=== PATIENT | male | born 1970 | race Caucasian/White ===

== ENCOUNTER 2017-11-17 16:58 | Emergency (ER) | payer OTHER ==
[2017-11-17] MEDS ORDERED: Aspirin 81 MG Tab.Chew PO ONE (17:05)
[2017-11-17] MEDS ORDERED: Ondansetron 4 MG/2 ML SDV ONE (17:08)
[2017-11-17] MEDS ORDERED: Ondansetron 4 MG/2 ML SDV IVPUSH ONE ×2 (17:08→19:30)
[2017-11-17] MEDS ORDERED: Aspirin 81 MG Tab.Chew ONE (17:10)
--- NOTE | 2017-11-17 17:23 | EDM.PDOC ---
ED HPI GENERAL MEDICAL PROBLEM - General Chief Complaint: Cardiovascular Problem Stated Complaint: [facility] Time Seen by Provider: 11/17/17 17:05 Source of Information: Reports: Patient History Limitations: Reports: No Limitations - History of Present Illness INITIAL COMMENTS - FREE TEXT/NARRATIVE: 47-year-old male presenting with a chief complaint dizziness, nausea, diaphoresis and chest pressure. While at work today the patient suddenly became diaphoretic nauseous and dizzy with some chest pressure which was substernal and left-sided. This is the second episode the patient has had in the past week and episode today was more severe than the first. Patient has history of hypertension for which she is on lisinopril. Patient can't describe any palliative or provoking factors. Upon arrival to our emergency department his chest pressure did resolve. Patient denies any history of CAD/ACS. States that he has no early family cardiac history. Patient is nonsmoker. - Related Data Allergies Allergy/AdvReac Type Severity Reaction Status Date / Time No Known Allergies Allergy Verified 11/17/17 17:04 Home Meds: Home Meds Lisinopril 20 mg PO DAILY 11/17/17 [History] hydroCHLOROthiazide [Hydrochlorothiazide] 25 mg PO DAILY 11/17/17 [History] Social & Family History - Tobacco Use Smoking Status *Q: Never Smoker - Caffeine Use Caffeine Use: Reports: Soda - Recreational Drug Use Recreational Drug Use: No ED ROS GENERAL - Review of Systems Review Of Systems: See Below Constitutional: Reports: Diaphoresis Respiratory: Reports: No Symptoms Cardiovascular: Reports: Other (Chest pressure) GI/Abdominal: Reports: Nausea : Reports: No Symptoms Musculoskeletal: Reports: No Symptoms Skin: Reports: No Symptoms Neurological: Reports: Dizziness Psychiatric: Reports: No Symptoms ED EXAM, GENERAL - Physical Exam Exam: See Below Exam Limited By: No Limitations General Appearance: Alert, Moderate Distress Eye Exam: Bilateral Eye: EOMI Respiratory/Chest: No Respiratory Distress, Lungs Clear, Normal Breath Sounds, Chest Non-Tender Cardiovascular: Normal Peripheral Pulses, Regular Rate, Rhythm, No Edema, No Gallop, No Murmur GI/Abdominal: Normal Bowel Sounds, Soft, Non-Tender, No Distention Neurological: Alert, Oriented, CN II-XII Intact, No Motor/Sensory Deficits Psychiatric: Normal Affect, Normal Mood Skin Exam: Intact, Cool, Diaphoretic EKG INTERPRETATION EKG Date: 11/17/17 Time: 17:01 Rhythm: NSR Rate (Beats/Min): 65 Orient: Normal P-Wave: Present QRS: Normal ST-T: Normal QT: Normal MI/PQ Interval: 182 Comparison: NA - No Prior EKG EKG Interpretation Comments: EKG limited by artifact missing V2. There are noted inverted T waves in V3 V4 V5 and V6. No ST segment changes no other acute signs of ischemia Course - Vital Signs Last Recorded V/S: Last Vital Signs Temp 36.6 C 11/17/17 17:04 Pulse 64 11/17/17 17:04 Resp 21 H 11/17/17 17:04 BP 139/84 11/17/17 17:04 Pulse Ox 96 11/17/17 17:04 Orthostatic Blood Pressure [ 142/86 Standing] Orthostatic Blood Pressure [ 146/87 Sitting] Orthostatic Blood Pressure [ 143/82 Supine] - Orders/Labs/Meds Orders: Active Orders 24 hr Category Date Time Status Cardiac Monitoring [RC] . DIRECTED Care 11/17/17 17:05 Active EKG Documentation Completion [RC] ASDIRECTED Care 11/17/17 19:55 Active EKG Documentation Completion [RC] STAT Care 11/17/17 19:29 Active EKG Documentation Completion [RC] STAT Care 11/17/17 21:34 Active Orthostatic Vital Signs [RC] ASDIRECTED Care 11/17/17 17:05 Active Pulse Oximetry [RC] CONTINUOUS Care 11/17/17 17:06 Active Nothing per Oral Now Diet [DIET] Diet 11/17/17 Dinner Active Chest 1V Frontal [CR] Stat Exams 11/17/17 17:07 Taken EKG 12 Lead [EK] Stat Ther 11/17/17 19:55 Ordered Labs: Laboratory Tests 11/17/17 11/17/17 11/17/17 Range/Units 17:05 17:05 17:05 WBC 9.42 H (4.23-9.07) K/mm3 RBC 5.45 (4.63-6.08) M/mm3 Hgb 17.2 (13.7-17.5) gm/L Hct 48.3 (40.1-51.0) % MCV 88.6 (79.0-92.2) fl MCH 31.6 (25.7-32.2) pg MCHC 35.6 H (32.2-35.5) g/dl RDW Std Deviation 41.8 (35.1-43.9) fL Plt Count 229 (163-337) K/mm3 MPV 10.4 (9.4-12.3) fl Neut % (Auto) 49.3 (34.0-67.9) % Lymph % (Auto) 36.8 (21.8-53.1) % [place] % (Auto) 10.7 (5.3-12.2) % Eos % (Auto) 2.2 (0.8-7.0) Baso % (Auto) 0.6 (0.1-1.2) % Neut # (Auto) 4.63 (1.78-5.38) K/mm3 Lymph # (Auto) 3.47 (1.32-3.57) K/mm3 [place] # (Auto) 1.01 H (0.30-0.82) K/mm3 Eos # (Auto) 0.21 (0.04-0.54) K/mm3 Baso # (Auto) 0.06 (0.01-0.08) K/mm3 PT 11.3 (9.5-12.1) SECONDS INR 1.04 Sodium 137 (136-145) mEq/L Potassium 3.4 L (3.5-5.1) mEq/L Chloride 98 (98-107) mEq/L Carbon Dioxide 24 (21-32) mEq/L Anion Gap 18.4 H (5-15) BUN 20 H (7-18) mg/dL Creatinine 1.4 H (0.7-1.3) mg/dL Est Cr Clr Drug Dosing 76.28 mL/min Estimated GFR (MDRD) 54 (>60) mL/min BUN/Creatinine Ratio 14.3 (14-18) Glucose 138 H (74-106) mg/dL Calcium 9.1 (8.5-10.1) mg/dL Magnesium 1.9 (1.8-2.4) mg/dl Total Bilirubin 0.6 (0.2-1.0) mg/dL AST 43 H (15-37) U/L ALT 80 H (16-63) U/L Alkaline Phosphatase 61 (46-116) U/L CK-MB (CK-2) 0.5 (0-3.6) ng/ml Troponin I < 0.017 (0.00-0.056) ng/mL NT-Pro-B Natriuret Pep (0-125) pg/mL Total Protein 8.0 (6.4-8.2) g/dl Albumin 4.1 (3.4-5.0) g/dl Globulin 3.9 gm/dL Albumin/Globulin Ratio 1.1 (1-2) Lipase 258 (73-393) U/L 11/17/17 11/17/17 Range/Units 17:05 20:05 WBC (4.23-9.07) K/mm3 RBC (4.63-6.08) M/mm3 Hgb (13.7-17.5) gm/L Hct (40.1-51.0) % MCV (79.0-92.2) fl MCH (25.7-32.2) pg MCHC (32.2-35.5) g/dl RDW Std Deviation (35.1-43.9) fL Plt Count (163-337) K/mm3 MPV (9.4-12.3) fl Neut % (Auto) (34.0-67.9) % Lymph % (Auto) (21.8-53.1) % [place] % (Auto) (5.3-12.2) % Eos % (Auto) (0.8-7.0) Baso % (Auto) (0.1-1.2) % Neut # (Auto) (1.78-5.38) K/mm3 Lymph # (Auto) (1.32-3.57) K/mm3 [place] # (Auto) (0.30-0.82) K/mm3 Eos # (Auto) (0.04-0.54) K/mm3 Baso # (Auto) (0.01-0.08) K/mm3 PT (9.5-12.1) SECONDS INR Sodium (136-145) mEq/L Potassium (3.5-5.1) mEq/L Chloride (98-107) mEq/L Carbon Dioxide (21-32) mEq/L Anion Gap (5-15) BUN (7-18) mg/dL Creatinine (0.7-1.3) mg/dL Est Cr Clr Drug Dosing mL/min Estimated GFR (MDRD) (>60) mL/min BUN/Creatinine Ratio (14-18) Glucose (74-106) mg/dL Calcium (8.5-10.1) mg/dL Magnesium (1.8-2.4) mg/dl Total Bilirubin (0.2-1.0) mg/dL AST (15-37) U/L ALT (16-63) U/L Alkaline Phosphatase (46-116) U/L CK-MB (CK-2) (0-3.6) ng/ml Troponin I < 0.017 (0.00-0.056) ng/mL NT-Pro-B Natriuret Pep 5 (0-125) pg/mL Total Protein (6.4-8.2) g/dl Albumin (3.4-5.0) g/dl Globulin gm/dL Albumin/Globulin Ratio (1-2) Lipase (73-393) U/L Meds: Medications Discontinued Medications Generic Name Dose Route Start Last Admin Trade Name Freq PRN Reason Stop Dose Admin Aspirin 324 mg 11/17/17 17:05 11/17/17 17:10 Aspirin PO 11/17/17 17:06 324 mg ONETIME ONE Administration Aspirin Confirm 11/17/17 17:10 11/17/17 20:45 Aspirin Administered 11/17/17 17:11 Not Given Dose 324 mg .ROUTE .STK-MED ONE Sodium Chloride 1,000 mls @ 999 mls/hr 11/17/17 19:30 11/17/17 19:43 Normal Saline IV 11/17/17 20:30 999 mls/hr ONETIME ONE Administration Ondansetron HCl 4 mg 11/17/17 17:08 11/17/17 17:08 Zofran IVPUSH 11/17/17 17:09 4 mg ONETIME ONE Administration Ondansetron HCl Confirm 11/17/17 17:08 11/17/17 20:46 Zofran Administered 11/17/17 17:09 Not Given Dose 4 mg .ROUTE .STK-MED ONE Ondansetron HCl 4 mg 11/17/17 19:30 11/17/17 19:49 Zofran IVPUSH 11/17/17 19:31 Not Given ONETIME ONE - Re-Assessments/Exams Free Text/Narrative Re-Assessment/Exam: 08/31/18 1720 47-year-old male presenting with chest pressure, dizziness nausea. Upon initial admission the patient has normal vital signs. He does appear to be in a moderate amount of distress and diaphoretic. His chest pressure resolved upon presentation to the emergency department. He however remains diaphoretic and nauseous. No emesis. Physical exam otherwise is unremarkable. Initial EKG was notable for inverted T waves in the precordial leads. Patient was treated with 324 aspirin on arrival deferred any nitroglycerin as the patient has no pain or pressure presently. 1954 First troponin negative labs otherwise unremarkable. Second EKG demonstrates apparently dynamic changes with now flattened T waves in V6 and V5 T wave inversion continues in V4 however not as prominent in V3 and then there are some unexplained changes in leads 1 through 3 which could be secondary to limb and augmented lead reversal patient feels improved after IV Zofran. Plan a follow-up on second troponin. 2139 Second troponin is negative patient continues to be symptomatic. Third EKG shows sinus rhythm, rate of 62, normal MI interval and normal QTC. The T-wave inversions seen on the first EKG continued to be resolved and V5 V6 and are less prominent in V3. Patient has a HEART score of 4, moderate risk of MACE. I feel that he needs transfer to a facility with stress test facility, he will be unable to obtain one within 72 hours over the long weekend. [address] Gonzalez at [facility], patient accepted, plan for provocative testing there and further risk stratification. Dr. Gonzalez requested the patient received metoprolol, lipitor and lovenox prior to travel. I was unable to place the orders prior to the patient's transfer by ambulance. Patient and his family agreed with plan for transfer. Departure - Departure Time of Disposition: 22:20 Disposition: DC/Tfer to Acute Hospital 02 Reason for Transfer *Q: Other (needs provocative cardiac testing) Condition: Fair Clinical Impression: Unstable angina Forms: ED Department Discharge - My Orders Last 24 Hours: My Active Orders 11/17/17 17:05 Cardiac Monitoring [RC] . DIRECTED Orthostatic Vital Signs [RC] ASDIRECTED 11/17/17 17:06 Pulse Oximetry [RC] CONTINUOUS 11/17/17 17:07 Chest 1V Frontal [CR] Stat 11/17/17 19:29 EKG Documentation Completion [RC] STAT 11/17/17 19:55 EKG Documentation Completion [RC] ASDIRECTED EKG 12 Lead [EK] Stat 11/17/17 21:34 EKG Documentation Completion [RC] STAT 11/17/17 Dinner Nothing per Oral Now Diet [DIET] - Assessment/Plan Last 24 Hours: My Active Orders 11/17/17 17:05 Cardiac Monitoring [RC] . DIRECTED Orthostatic Vital Signs [RC] ASDIRECTED 11/17/17 17:06 Pulse Oximetry [RC] CONTINUOUS 11/17/17 17:07 Chest 1V Frontal [CR] Stat 11/17/17 19:29 EKG Documentation Completion [RC] STAT 11/17/17 19:55 EKG Documentation Completion [RC] ASDIRECTED EKG 12 Lead [EK] Stat 11/17/17 21:34 EKG Documentation Completion [RC] STAT 11/17/17 Dinner Nothing per Oral Now Diet [DIET]
[2017-11-17] MEDS ORDERED: Sodium Chloride 0.9% 1,000 ML IV ONE (19:30)
--- NOTE | 2017-11-21 07:48 | CR ---
Chest: Portable view of the chest was obtained. Comparison: No previous study. Heart size is normal. Tortuous thoracic aorta is seen. Lungs are clear without acute parenchymal change. Bony structures are grossly intact. Impression: 1. Nothing acute is seen on portable chest x-ray. Diagnostic code #1
== END 2017-11-17 23:30 ==
LOC: JD.ED 16:58
DX: I20.0 Unstable angina (principal); I10 Essential (primary) hypertension; Z79.899 Other long term (current) drug therapy
CPT/HCPCS: 36415; 71045; 80053; 82553; 83690; 83735; 83880; 84484; 85025; 85610; 93005; 96361; 96374; 99285; A9270; J2405; J7040; 93010